=== PATIENT | female | born 1955 | race Caucasian/White ===

== ENCOUNTER 2019-04-14 09:58 | Day surgery (SDC) | payer OTHER ==
[~2019-04-14] VITALS: Ht 162.6 cm; Wt 68.7 kg
[2019-04-14 10:55] VITALS: BP 101/68
== END 2019-04-14 18:40 | disposition home or self-care (01) ==
LOC: OUT 09:58
PROVIDERS: ATTEND Orthopaedic Surgery
DX: S42.031A Displaced fracture of lateral end of right clavicle, initial encounter for closed fracture (principal); S43.431A Superior glenoid labrum lesion of right shoulder, initial encounter; I10 Essential (primary) hypertension; E11.9 Type 2 diabetes mellitus without complications; F17.200 Nicotine dependence, unspecified, uncomplicated; Z72.89 Other problems related to lifestyle; Z79.4 Long term (current) use of insulin; Z79.899 Other long term (current) drug therapy; W06.XXXA Fall from bed, initial encounter; Y93.89 Activity, other specified; Y92.89 Other specified places as the place of occurrence of the external cause; Y99.8 Other external cause status
CPT/HCPCS: 23515; 29822; 73020; 80053; 82962; 93005; C1713; J0171; J0690; J1100; J2250; J2370; J2405; J2704; J2710; J3010; J3490; J7120; 76000; J1885